=== PATIENT | female | born 1935 | race Caucasian/White ===

== ENCOUNTER 2017-05-29 15:04 | Inpatient (IN) | payer MEDICARE, BC ==
[~2017-05-29] VITALS: Ht 149.9 cm; Wt 50.3 kg
--- NOTE | 2017-05-29 15:28 | NUR ---
pt at bedside. per pt , pt has alzheimer and low blood pressure. pt is on blood pressure meds to control the bp and sometimes the pt become hypotensive and becomes altered more than usual but usually it resolves in 15 minutes. ganesh the pt was adult day care and pt was not there. but the was her usual self in the morning when the pt went to daycare.
[2017-05-29 15:37] LABS: BASOPHILS # (AUTO) 0.1 K/uL (0.0-8.0); BASOPHILS % (AUTO) 0.7 % (0.0-2.0); EOSINOPHILS # (AUTO) 0.1 K/uL (0.0-0.7); EOSINOPHILS % (AUTO) 0.9 % (0.0-7.0); HEMATOCRIT 38.4 % (31.2-41.9); HEMOGLOBIN 12.9 g/dL (10.9-14.3); LYMPHOCYTES # (AUTO) 1.4 K/uL (20.0-40.0); LYMPHOCYTES % (AUTO) 18.9 % (20.5-51.5); MEAN CORPUSCULAR HGB CONC 34 g/dL (32.3-35.6); MEAN CORPUSCULAR VOLUME 86.4 fL (75.5-95.3); NEUTROPHILS % (AUTO) 66.5 % (38.5-71.5); PLATELET COUNT (AUTO) 286 K/uL (179-408); RED BLOOD CELL COUNT(AUTO) 4.45 MIL/uL (3.63-4.92); WHITE BLOOD COUNT (AUTO) 7.5 K/uL (3.8-11.8)
[2017-05-29 15:50] LABS: CARBON DIOXIDE 27 mmol/L (21-32); CHLORIDE 98 mmol/L (98-107); CREATININE 0.7 mg/dL (0.6-1.3); GLUCOSE 88 mg/dL (74-106); POTASSIUM 4.1 mmol/L (3.5-5.1); UREA NITROGEN, BLOOD 18 mg/dL (7-18)
[2017-05-29 15:55] LABS: ALANINE AMINOTRANSFERASE 23 U/L (14-59); ALKALINE PHOSPHATASE 63 U/L (50-136); ASPARTATE AMINOTRANSFERASE 22 U/L (15-37); BILIRUBIN,DIRECT 0.1 mg/dL (0.0-0.2); BILIRUBIN,TOTAL 0.3 mg/dL (0.2-1.0); TOTAL PROTEIN, SERUM 7.9 g/dL (6.4-8.2)
[2017-05-29] MEDS ORDERED: CITA20TA19 PO (16:38)
[2017-05-29] MEDS ORDERED: MIDO10TA PO (16:38)
[2017-05-29] MEDS ORDERED: LEVO75TA7 PO (16:38)
[2017-05-29] MEDS ORDERED: MEMA10TA PO (16:38)
[2017-05-29] MEDS ORDERED: EXELON PO (16:38)
[2017-05-29] MEDS ORDERED: ACET-2154 PO (16:38)
[2017-05-29 16:40] LABS: *BILIRUBIN,URIN NEGATIVE (NEGATIVE); *BLOOD, URINE NEGATIVE (NEGATIVE); *CLARITY,URINE CLEAR (CLEAR); *COLOR,URINE YELLOW (YELLOW); *KETONES,URINE NEGATIVE (NEGATIVE); *PROTEIN,URINE 1+ (NEGATIVE); *UROBILINOGEN,URINE 0.2 E.U./dl (NORMAL); LEUKOCYTE ESTERASE ,URINE TRACE (NEGATIVE); NITRITE, URINE NEGATIVE (NEGATIVE); UGLUCOSE NEGATIVE (NEGATIVE)
[2017-05-29 16:50] LABS: BACTERIA,URINE NONE SEEN /HPF (NONE SEEN); SQUAMOUS EPITHELIAL CELL,UR MODERATE /HPF (NONE SEEN)
[2017-05-29] MEDS ORDERED: CEFTRIAXONE 1 G in IV DEXTROSE 5% 50 ML IV ONE (17:00)
[2017-05-29] MEDS ORDERED: CEFTRIAXONE 1 G VIAL ONE (17:03)
[2017-05-29] MEDS ORDERED: MAGNESIUM HYDROXIDE 30 ML LIQUID UDC PO PRN (18:15)
[2017-05-29] MEDS ORDERED: ONDANSETRON 4 MG/2 ML VIAL IV PRN (18:15)
[2017-05-29] MEDS ORDERED: HYDROCODONE/APAP 5-325MG TABLET PO PRN (18:15)
[2017-05-29] MEDS ORDERED: ACETAMINOPHEN 325 MG TABLET PO SCH (18:15)
[2017-05-29] MEDS ORDERED: Z GUARD REMEDY PASTE 57 GM TUBE TOP PRN (18:15)
[2017-05-29] MEDS ORDERED: ACETAMINOPHEN 325 MG TABLET PO PRN (18:15)
[2017-05-29] MEDS ORDERED: IV NS 1000 ML 1,000 ML IV ONE (18:15)
--- NOTE | 2017-05-29 18:30 | NUR ---
Pt is in no acute distress. Pt's skin dry and intact. iv on right ac #18. Tele pacing at 70's. Call light is within reach. Bed alarm on for fall precaution. Call light is within reach.
[2017-05-29 18:44] VITALS: BP 136/72
--- NOTE | 2017-05-29 19:30 | NUR ---
PT IN ROOM ALERT AWAKE IN NO ACUTE DISTRESS WITH PERIODS OF CONFUSION NOTED. VITAL SIGNS REMAIN WNL. SPOUSE ALKA AT BEDSIDE ASSISTING WITH ASSESSMENT PROCESS. NO NEW ORDERS AT THIS TIME. MD ORDERED PT TO START ON IV HYDRATION. BED ALARM ON WITH 3 SIDE RAILS RAISED. WILL CONTINUE TO MONITOR. OFFERED SNACKS AND ENCOURAGED FLUIDS AT THIS TIME.
[2017-05-29 20:34] VITALS: BP 124/79
[2017-05-29] MEDS: ZOLPIDEM 5 MG TABLET PO PRN (21:35)
[2017-05-30] VITALS: BP 130/73
[2017-05-30 04:00] VITALS: BP 127/76
--- NOTE | 2017-05-30 05:30 | NUR ---
PT IN ROOM ABLE TO SLEEP UP TO 6 HRS WITHOUT DIFFICULTY. NO S/S OF RESP DISTRESS. MAINTAINING IV HYDRATION WITH SALINE @75ML/HR. PACING PRESENT WITH 71 BPM. PT REPOSITIONED WITH BED ALARM ON. WILL CONTINUE TO MONITOR. PERIODS OF ALTERED MENTAL STATUS STILL PRESENT.
[2017-05-30] MEDS: LEVOTHYROXINE SODIUM 75 MCG TABLET PO SCH (06:46)
[2017-05-30 06:53] LABS: CARBON DIOXIDE 27 mmol/L (21-32); CHLORIDE 101 mmol/L (98-107); CREATININE 0.6 mg/dL (0.6-1.3); GLUCOSE 82 mg/dL (74-106); MAGNESIUM 1.9 mg/dL (1.8-2.4); PHOSPHOROUS 3.3 mg/dL (2.5-4.9); POTASSIUM 3.9 mmol/L (3.5-5.1); UREA NITROGEN, BLOOD 12 mg/dL (7-18)
[2017-05-30 06:55] LABS: BASOPHILS % (AUTO) 0.7 % (0.0-2.0); EOSINOPHILS # (AUTO) 0.1 K/uL (0.0-0.7); EOSINOPHILS % (AUTO) 1.8 % (0.0-7.0); HEMATOCRIT 34.9 % (31.2-41.9); HEMOGLOBIN 11.7 g/dL (10.9-14.3); LYMPHOCYTES # (AUTO) 1.6 K/uL (20.0-40.0); LYMPHOCYTES % (AUTO) 28.6 % (20.5-51.5); MEAN CORPUSCULAR HEMOGLOBIN 28.9 uug (24.7-32.8); MEAN CORPUSCULAR HGB CONC 33 g/dL (32.3-35.6); MEAN CORPUSCULAR VOLUME 86.7 fL (75.5-95.3); MONOCYTES # (AUTO) 0.8 K/uL (2.0-10.0); MONOCYTES % (AUTO) 14.1 % (0.0-11.0); NEUTROPHILS % (AUTO) 54.8 % (38.5-71.5); PLATELET COUNT (AUTO) 260 K/uL (179-408); RED BLOOD CELL COUNT(AUTO) 4.03 MIL/uL (3.63-4.92)
[2017-05-30 07:10] LABS: WHITE BLOOD COUNT (AUTO) 5.5 K/uL (3.8-11.8)
--- NOTE | 2017-05-30 08:00 | NUR ---
AWAKE CONFUSED ,FORGETFUL BUT FOLLOW SOME SIMPLE DIRECTION ON ASPIRATION AND FALL PRECAUTION BED ALARM ON AND CALL LIGHT IN REACH IV CONVERT TO HL ORDER
[2017-05-30] MEDS: RIVASTIGMINE TARTRATE 3 MG CAPSULE PO SCH ×2 (08:10→17:08)
[2017-05-30] MEDS: MEMANTINE HCL 10 MG TABLET PO SCH ×2 (08:10→17:08)
[2017-05-30] MEDS ORDERED: Medication Not On Formulary EA (Midodrine Hcl 10 MG) PO SCH (09:00)
[2017-05-30] MEDS: MIDODRINE HCL 5 MG TABLET PO SCH ×3 (09:00→17:08)
[2017-05-30] MEDS ORDERED: EXELON PO SCH (09:00)
--- NOTE | 2017-05-30 11:00 | NUR ---
DR GONZALEZ SEEN PATIENT NO NEW ORDER OOB UP AMB WITH ASSIST [facility] AT BEDSIDE
[2017-05-30 11:44] VITALS: BP 109/64
--- NOTE | 2017-05-30 14:00 | NUR ---
ASSIST BACK TO BED RESTING WELL PAIN UNDER CONTROL CLOSED OBSERVATION
[2017-05-30 15:06] VITALS: BP 104/46
[2017-05-30] MEDS ORDERED: CEFTRIAXONE 1 G in IV DEXTROSE 5% 50 ML IV SCH (17:00)
--- NOTE | 2017-05-30 17:30 | NUR ---
STABLE HEMODYNAMIC STATUS NO ACUTE DISTRESS ,PAIN UNDER CONTROL SAFETY MEASURE PROVIDED CALL LIGHT IN REACH AND BED ALARM ON
[2017-05-30 20:00] VITALS: BP 108/48
--- NOTE | 2017-05-30 20:00 | NUR ---
RECEIVED PATIENT AWAKE IN BED WITH AT BEDSIDE. PATIENT IS ALERT TO SELF, CONFUSED BUT PLEASANT WHEN APPROACHED. DENIES PAIN OR DISCOMFORT. NO RESP. DISTRESS NOTED. VS WNL. HEPLOCK INTACT AND PATENT. BED ALARM ON. CALL LIGHT IN REACH. ALL NEEDS ATTENDED. WILL CONTINUE TO MONITOR.
--- NOTE | 2017-05-30 22:00 | NUR ---
PATIENT AWAKE IN BED. APPEARS RESTLESS. PATIENT GIVEN AMBIEN 5MG PO PRN FOR SLEEP. BED ALARM ON. ALL NEEDS ATTENDED. WILL CONTINUE TO MONITOR.
[2017-05-30] MEDS: ZOLPIDEM 5 MG TABLET PO PRN (22:02)
--- NOTE | 2017-05-30 23:07 | NUR ---
PATIENT ASLEEP IN BED. NO RESP. DISTRESS NOTED. BED ALARM ON. ALL NEEDS ATTENDED.
[2017-05-31] MEDS: LEVOTHYROXINE SODIUM 75 MCG TABLET PO SCH (06:26)
[2017-05-31 06:29] VITALS: BP 123/74
--- NOTE | 2017-05-31 06:34 | NUR ---
PATIENT AWAKE IN BED. SLEPT WELL. BED ALARM ON. CALL LIGHT IN REACH. ALL NEEDS ATTENDED.
--- NOTE | 2017-05-31 07:51 | NUR ---
RECEIVED PATIENT AWAKE IN BED . PATIENT IS ALERT TO SELF, CONFUSED BUT PLEASANT WHEN APPROACHED. DENIES PAIN OR DISCOMFORT. NO RESP. DISTRESS NOTED. VS WNL. HEPLOCK INTACT AND PATENT. BED ALARM ON. CALL LIGHT IN REACH. ALL NEEDS ATTENDED. WILL CONTINUE TO MONITOR.
[2017-05-31] MEDS: MIDODRINE HCL 5 MG TABLET PO SCH (08:04)
[2017-05-31] MEDS: RIVASTIGMINE TARTRATE 3 MG CAPSULE PO SCH (08:04)
[2017-05-31] MEDS: MEMANTINE HCL 10 MG TABLET PO SCH (08:05)
[2017-05-31 11:07] VITALS: BP 111/60
[2017-05-31] MEDS ORDERED: CEPH-570 PO (11:09)
--- NOTE | 2017-05-31 12:03 | NUR ---
D/C ORDERS RECEIVED NOTED AND CARRIED OUT.D/C HEPLOCK PER MD ORDERS,D/C INSTRUCTION GIVEN TO THE PT AND HER ,PT LEFT THE FACILITY PRIVATE CAR IN STABLE CONDITION.
== END 2017-05-31 12:00 | disposition home or self-care (01) | DRG 73 ==
LOC: ER 15:07 → TELE 18:07 → MED 05-30 16:43
PROVIDERS: ADMIT Internal Medicine; ATTEND Internal Medicine
DX: G90.8 Other disorders of autonomic nervous system (principal); G92 Toxic encephalopathy; E86.1 Hypovolemia; E87.1 Hypo-osmolality and hyponatremia; G30.9 Alzheimer's disease, unspecified; F02.80 Dementia in other diseases classified elsewhere, unspecified severity, without behavioral disturbance, psychotic disturbance, mood disturbance, and anxiety; N39.0 Urinary tract infection, site not specified; E03.9 Hypothyroidism, unspecified; F41.9 Anxiety disorder, unspecified; F32.9 Major depressive disorder, single episode, unspecified
CPT/HCPCS: 36415; 70030-TC; 70450; 71045; 83605; 83735; 84100; 85025; 85730; 87040; 87086; 93005; A4663; C1758; J0696; J3490; J7030; J7050; J7060

== ENCOUNTER 2018-06-21 18:05 | Inpatient (IN) | payer MEDICARE, BC ==
[~2018-06-21] VITALS: Ht 182.9 cm; Wt 59.4 kg
[~2018-06-21 18:05] MED LIST: ACET-2154 PO; CEPH-570 PO; CITA20TA19 PO; EXELON PO; LEVO75TA7 PO; MEMA10TA PO; MIDO10TA PO
[2018-06-21 21:38] VITALS: BP 106/60
[2018-06-21] MEDS ORDERED: ONDA4TAB5 PO (22:08)
[2018-06-21] MEDS ORDERED: ZOLP5TAB2 PO (22:08)
[2018-06-21] MEDS ORDERED: SORB PO (22:08)
[2018-06-21] MEDS ORDERED: BISA10SU61 RC (22:08)
[2018-06-21] MEDS ORDERED: LACT10SO7 PO (22:08)
[2018-06-21] MEDS ORDERED: LACT-246 PO (22:08)
[2018-06-21] MEDS ORDERED: HYDR-3326 PO (22:08)
[2018-06-21] MEDS ORDERED: ACET-2154 PO (22:08)
--- NOTE | 2018-06-21 23:14 | NUR ---
received an 82 yr old female admitted from [facility] with admitting diagnosis of metabolic encepalopathy. patient awake alert and oriented x1. confused and disoriented. Cooperative and was able to follow simple commands. VSS. No skin breakdown. Incontinent of bowel and bladder. No BM this shift. On fall precautions. Call serra within reach. Siderails up for safety. Hx of hypothyroidism, Alzheimers, right knee replacement and has a left anterior chest wall pacemaker. MRSA swab done. HOSE TENDER Jose Fraser aware of patient's admission and meds to be reconcile. Will monitor patient.
[2018-06-22 05:40] VITALS: BP 110/73
--- NOTE | 2018-06-22 06:43 | NUR ---
slept well most of the shift. fall precautions maintained. needs attended. VSS. incontinent of urine. kept clean and dry. NO BM noted. no complaints presented during shift.
[2018-06-22 07:40] VITALS: BP 139/69
--- NOTE | 2018-06-22 07:45 | NUR ---
Patient in bed, awake, responsive to name, confused, not in any form of distress. No noted signs of pain or discomfort. Call light placed within reach. Fall precaution observed.
[2018-06-22] MEDS ORDERED: RIVA3CAP5 PO (09:18)
[2018-06-22] MEDS ORDERED: SORB30SO2 PO (09:19)
--- NOTE | 2018-06-22 09:30 | NUR ---
Patient up ambulating with walker with physical therapist, no complaints at this time.
[2018-06-22] MEDS ORDERED: BISACODYL 10 MG SUPP.RECT RC PRN (09:45)
[2018-06-22] MEDS ORDERED: ZOLPIDEM 5 MG TABLET PO PRN (09:45)
[2018-06-22] MEDS ORDERED: ACETAMINOPHEN 325 MG TABLET PO PRN (09:45)
[2018-06-22] MEDS ORDERED: HYDROCODONE/APAP 5-325MG TABLET PO PRN (09:45)
--- NOTE | 2018-06-22 10:00 | NUR ---
Patient seen and examined by Dr. Savage with at bedside. No new order at this time.
[2018-06-22] MEDS ORDERED: Medication Not On Formulary EA (Lactose-Reduced Food (Ensure Enlive) 237 ML) PO SCH (13:00)
[2018-06-22] MEDS ORDERED: Medication Not On Formulary EA (Midodrine Hcl 10 MG) PO SCH (13:00)
[2018-06-22] MEDS: ENSURE WITH FIBER 237 ML LIQUID (CHOCOLATE) PO SCH ×2 (13:12→17:55)
[2018-06-22] MEDS: MIDODRINE HCL 5 MG TABLET PO SCH ×2 (13:12→18:08)
[2018-06-22 16:12] VITALS: BP 121/62
[2018-06-22] MEDS: MEMANTINE HCL 10 MG TABLET PO SCH (17:54)
[2018-06-22] MEDS: RIVASTIGMINE TARTRATE 3 MG CAPSULE PO SCH (17:55)
[2018-06-22 19:43] VITALS: BP 99/61
[2018-06-22] MEDS: CEphaleXIN 500 MG CAPSULE PO SCH (20:22)
--- NOTE | 2018-06-22 20:41 | NUR ---
awake alert and oriented x1-2 tolerated po meds well with apple sauce. VSS. kept comfortable. incontinent of urine x2. kept clean and dry. Needs attended. fall precautions maintained. call serra at bedside. bed alarm on.
[2018-06-23 04:20] VITALS: BP 126/73
--- NOTE | 2018-06-23 04:42 | NUR ---
slept well most of the shift. VSS. No acute distress noted. needs attended. kept comfortable. incontinent of urine. kept clean and dry. safety precautions maintained.
[2018-06-23] MEDS: LEVOTHYROXINE SODIUM 75 MCG TABLET PO SCH (06:30)
[2018-06-23 08:30] VITALS: BP 94/59
[2018-06-23] MEDS: MIDODRINE HCL 5 MG TABLET PO SCH ×3 (08:33→16:18)
[2018-06-23] MEDS: CITALOPRAM 20 MG TABLET PO SCH (08:33)
[2018-06-23] MEDS: RIVASTIGMINE TARTRATE 3 MG CAPSULE PO SCH ×2 (08:34→16:17)
[2018-06-23] MEDS: MEMANTINE HCL 10 MG TABLET PO SCH ×2 (08:34→16:17)
[2018-06-23] MEDS: CEphaleXIN 500 MG CAPSULE PO SCH ×2 (08:34→20:36)
[2018-06-23] MEDS: ENSURE WITH FIBER 237 ML LIQUID (CHOCOLATE) PO SCH ×3 (08:35→16:17)
[2018-06-23] MEDS: SORBITOL 70% SOLUTION 30 ML UDC PO SCH (08:35)
--- NOTE | 2018-06-23 10:24 | NUR ---
Received pt. on bed, comfortable in no distress. A/Ox1 confused but verbally responsive. Denies CP or SOB. All due medications given and tolerated well. On PO abx for proctitis, no ASE noted. Skin care rendered, no new skin condition noted. came to visit pt. this AM. All pt. needs attended and met promptly. Safety measures in place. Call light and all frequently used items within pt. reach.
[2018-06-23] MEDS: ONDANSETRON HCL 4 MG TABLET PO SCH ×2 (13:46→14:05)
[2018-06-23 16:12] VITALS: BP 106/62
--- NOTE | 2018-06-23 18:59 | NUR ---
End of shift note: No sign of acute distress or SOB was noted. Kept pt clean and dry throughout this shift. Safety measures maintained. All needs attended and met promptly. Bed in low position, brake on, side rails up x2 as an enabler. Call light and all frequently used items within pt. reach. Will endorse to next shift accordingly
[2018-06-23 20:18] VITALS: BP 103/46
--- NOTE | 2018-06-23 20:53 | NUR ---
Received patient in bed sleeping. A/Ox1 confused but responsive to verbal stimuli. No C/O pain or SOB. On PO antibiotics for proctitis, no ASE noted. Call light and frequently used items within reach. Side rails up bilaterally. Will continue to monitor.
[2018-06-24 05:22] VITALS: BP 109/51
[2018-06-24] MEDS: LEVOTHYROXINE SODIUM 75 MCG TABLET PO SCH (06:01)
--- NOTE | 2018-06-24 06:42 | NUR ---
Patient slept soundly throughout the night. All due medications given-tolerated well. No vomiting on shift. Patient on Keflex for Proctitis. Patient assisted with bathroom needs x 1. Side rails up bilaterally for safety. Call light and frequently used items within reach. Will endorse to oncoming shift accordingly.
[2018-06-24] MEDS: MEMANTINE HCL 10 MG TABLET PO SCH ×2 (08:12→17:05)
[2018-06-24] MEDS: RIVASTIGMINE TARTRATE 3 MG CAPSULE PO SCH ×2 (08:12→17:05)
[2018-06-24] MEDS: CITALOPRAM 20 MG TABLET PO SCH (08:12)
[2018-06-24] MEDS: CEphaleXIN 500 MG CAPSULE PO SCH ×2 (08:13→20:02)
[2018-06-24] MEDS: MIDODRINE HCL 5 MG TABLET PO SCH ×3 (08:13→17:05)
[2018-06-24] MEDS: SORBITOL 70% SOLUTION 30 ML UDC PO SCH (08:13)
[2018-06-24] MEDS: ENSURE WITH FIBER 237 ML LIQUID (CHOCOLATE) PO SCH ×3 (08:13→17:05)
[2018-06-24 08:30] VITALS: BP 108/60
--- NOTE | 2018-06-24 09:29 | NUR ---
Received pt. on bed, comfortable in no distress. A/Ox1 confused but verbally responsive. Denies CP or SOB. All due medications given and tolerated well. On PO abx for proctitis, no ASE noted. Pt. showered this AM. All pt. needs attended and met promptly. Safety measures in place. Call light and all frequently used items within pt. reach.
--- NOTE | 2018-06-24 10:13 | NUR ---
INDIVIDUALIZE OVERALL PLAN OF CARE
--- NOTE | 2018-06-24 16:06 | NUR ---
Social work: AD: flare worker reached out to [facility] Address: [address] [place] [address], [place] [address] and requested copy of Advance Directive be faxed to [facility], medical records could not find paperwork, medical records took sw contact number and fax number and will return call. Pts stated pt does not want any feeding tubes.
[2018-06-24 16:30] VITALS: BP 103/51
--- NOTE | 2018-06-24 18:10 | NUR ---
End of shift note: No significant change during this shift. No distress or SOB was noted. Requires total assist during meal time. Kept pt clean and dry throughout this shift. Safety measures maintained. All needs attended and met promptly. Bed alarm on. Bed in low position, brake on, side rails up x2 as an enabler. Call light and all frequently used items within pt. reach. Will endorse to next shift accordingly
--- NOTE | 2018-06-24 19:25 | NUR ---
Received patient watching TV. Alert and oriented x 1 and confused. No C/O pain or SOB. On PO antibiotics for proctitis, no ASE noted. Call light and frequently used items within reach. Side rails up bilaterally. Will continue to monitor.
[2018-06-24 19:29] VITALS: BP 103/54
[2018-06-25 05:21] VITALS: BP 109/80
[2018-06-25] MEDS: LEVOTHYROXINE SODIUM 75 MCG TABLET PO SCH (06:05)
--- NOTE | 2018-06-25 06:41 | NUR ---
Patient slept soundly throughout the night. All due medications given-tolerated well. Patient on Keflex for Proctitis. Patient assisted with bathroom needs x 1. Side rails up bilaterally for safety. Call light and frequently used items within reach. Will endorse to oncoming shift accordingly.
[2018-06-25 07:41] VITALS: BP 133/69
[2018-06-25] MEDS: CITALOPRAM 20 MG TABLET PO SCH (08:27)
[2018-06-25] MEDS: MIDODRINE HCL 5 MG TABLET PO SCH ×3 (08:28→16:05)
[2018-06-25] MEDS: MEMANTINE HCL 10 MG TABLET PO SCH ×2 (08:28→16:21)
[2018-06-25] MEDS: RIVASTIGMINE TARTRATE 3 MG CAPSULE PO SCH ×2 (08:29→16:21)
[2018-06-25] MEDS: SORBITOL 70% SOLUTION 30 ML UDC PO SCH (08:29)
[2018-06-25] MEDS: CEphaleXIN 500 MG CAPSULE PO SCH (08:29)
[2018-06-25] MEDS: ENSURE WITH FIBER 237 ML LIQUID (CHOCOLATE) PO SCH ×3 (08:29→16:21)
--- NOTE | 2018-06-25 09:19 | NUR ---
Received pt. on bed, comfortable in no distress. A/Ox1 confused but verbally responsive. Denies CP or SOB. All due medications given and tolerated well. Last dose of keflex given today. Noted with poor PO intake, encouraged to drink Ensure. All pt. needs attended and met promptly. Safety measures in place. Call light and all frequently used items within pt. reach.
[2018-06-25 16:02] VITALS: BP 115/62
--- NOTE | 2018-06-25 18:44 | NUR ---
End of shift note: No significant change during this shift. No distress or SOB was noted. Kept pt clean and dry throughout this shift. Safety measures maintained. All needs attended and met promptly. Bed alarm on. Bed in low position, brake on, side rails up x2 as an enabler. Call light and all frequently used items within pt. reach. Will endorse to next shift accordingly
[2018-06-25 19:22] VITALS: BP 104/54
--- NOTE | 2018-06-25 20:08 | NUR ---
awake and alert at beginning of shift. VSS. needs attended. incontinent of bowel and bladder. kept clean and dry. No BM noted this shift. kept comfortable. Repositioned for comfort. Turn from sides to sides. Will monitor patient. Denies any pain nor any discomfort.
[2018-06-26 05:42] VITALS: BP 121/57
[2018-06-26] MEDS: LEVOTHYROXINE SODIUM 75 MCG TABLET PO SCH (06:08)
[2018-06-26] MEDS: CITALOPRAM 20 MG TABLET PO SCH (08:08)
[2018-06-26] MEDS: MIDODRINE HCL 5 MG TABLET PO SCH ×3 (08:08→16:48)
[2018-06-26] MEDS: MEMANTINE HCL 10 MG TABLET PO SCH ×2 (08:08→16:42)
[2018-06-26] MEDS: ENSURE WITH FIBER 237 ML LIQUID (CHOCOLATE) PO SCH ×3 (08:14→16:49)
[2018-06-26] MEDS: RIVASTIGMINE TARTRATE 3 MG CAPSULE PO SCH ×2 (08:24→16:48)
[2018-06-26] MEDS: SORBITOL 70% SOLUTION 30 ML UDC PO SCH (08:24)
[2018-06-26 09:00] VITALS: BP 119/56
--- NOTE | 2018-06-26 15:55 | NUR ---
Received patient awake, alert to self in stable condition. not in distress. Continue therapy for ambulation, ADL and transfer ability. tolerated well. no complaint of pain/discomfort noted. will continue monitor
[2018-06-26 18:52] VITALS: BP 134/69
[2018-06-26 19:40] VITALS: BP 130/61
--- NOTE | 2018-06-26 19:54 | NUR ---
awake and alert. VSS no acute distress noted.denies any pain nor any discomfort. VSS repoitioned for comfort. needs attended. kept comfortable. PM care done. incontinent of bowel and bladder. kept clean and dry. fall precautions maintained. siderails up for safety. call serra within reach. bed alarm on.
[2018-06-27 04:30] VITALS: BP 118/67
[2018-06-27] MEDS: LEVOTHYROXINE SODIUM 75 MCG TABLET PO SCH (06:25)
--- NOTE | 2018-06-27 06:42 | NUR ---
slept well most of the shift. VSS. kept comfortable. incontinent of bowel and bladder. BM this shift. no acute distress noted.will monitor patient.
--- NOTE | 2018-06-27 07:20 | NUR ---
Patient awake, alert oriented to self, verbally responsive, not in any form of distress. No complain of pain or any discomfort. Call light and frequently used items placed within reach. Safety measures in place.
[2018-06-27 07:58] LABS: BASOPHILS % (AUTO) 0.4 % (0.0-2.0); EOSINOPHILS # (AUTO) 0.1 K/uL (0.0-0.7); EOSINOPHILS % (AUTO) 0.7 % (0.0-7.0); HEMOGLOBIN 11.4 g/dL (10.9-14.3); LYMPHOCYTES # (AUTO) 1.3 K/uL (20.0-40.0); LYMPHOCYTES % (AUTO) 16.4 % (20.5-51.5); MEAN CORPUSCULAR HGB CONC 33 g/dL (32.3-35.6); MEAN CORPUSCULAR VOLUME 84.1 fL (75.5-95.3); MONOCYTES # (AUTO) 0.9 K/uL (2.0-10.0); MONOCYTES % (AUTO) 11.8 % (0.0-11.0); NEUTROPHILS # (AUTO) 5.5 K/uL (1.8-8.9); NEUTROPHILS % (AUTO) 70.7 % (38.5-71.5); PLATELET COUNT (AUTO) 517 K/uL (179-408); RED BLOOD CELL COUNT(AUTO) 4.05 MIL/uL (3.63-4.92); WHITE BLOOD COUNT (AUTO) 7.7 K/uL (3.8-11.8)
[2018-06-27 08:00] VITALS: BP 108/55
[2018-06-27 08:34] LABS: ALANINE AMINOTRANSFERASE 21 U/L (14-59); ALKALINE PHOSPHATASE 81 U/L (50-136); ASPARTATE AMINOTRANSFERASE 14 U/L (15-37); BILIRUBIN,TOTAL 0.2 mg/dL (0.2-1.0); CARBON DIOXIDE 30 mmol/L (21-32); CHLORIDE 101 mmol/L (98-107); CHOLESTEROL 201 mg/dL (<200); CREATININE 0.6 mg/dL (0.6-1.3); GLUCOSE 100 mg/dL (74-106); HDL CHOLESTEROL 45 mg/dL (40-60); MAGNESIUM 2.1 mg/dL (1.8-2.4); PHOSPHOROUS 3.3 mg/dL (2.5-4.9); POTASSIUM 4.1 mmol/L (3.5-5.1); TOTAL PROTEIN, SERUM 6.9 g/dL (6.4-8.2); TRIGLYCERIDES 75 MG/DL (30-150); UREA NITROGEN, BLOOD 14 mg/dL (7-18)
[2018-06-27] MEDS: MEMANTINE HCL 10 MG TABLET PO SCH ×2 (09:23→17:04)
[2018-06-27] MEDS: CITALOPRAM 20 MG TABLET PO SCH (09:23)
[2018-06-27] MEDS: RIVASTIGMINE TARTRATE 3 MG CAPSULE PO SCH ×2 (09:23→17:03)
[2018-06-27] MEDS: SORBITOL 70% SOLUTION 30 ML UDC PO SCH (09:24)
[2018-06-27] MEDS: MIDODRINE HCL 5 MG TABLET PO SCH ×3 (09:24→17:00)
[2018-06-27] MEDS: ENSURE WITH FIBER 237 ML LIQUID (CHOCOLATE) PO SCH ×3 (09:25→17:17)
[2018-06-27 10:08] LABS: THYROID STIMULATING HORMONE 3.116 mIU/mL (0.358-3.740)
[2018-06-27 17:00] VITALS: BP 145/74
--- NOTE | 2018-06-27 18:45 | NUR ---
Notified Dr. Williamson regarding patient's blood pressure 145/74 and due midodrine, per MD hold dose now and change order to Midodrine 5mg PO Q12hrs hold for SBP above 120mmHg
[2018-06-27 20:09] VITALS: BP 119/69
[2018-06-27] MEDS: ATORVASTATIN 10 MG TABLET PO SCH (20:32)
--- NOTE | 2018-06-27 23:30 | NUR ---
awake upon initial rounds. aaox1-2 compliant with meds. tolerated po meds well. VSS. no acute distress noted. incontinent of bowel and bladder. kept clean and dry. seen by Dr Williamson. Will call in am. Celexa and sorbitol d/c per MD's order. Fall precautions maintained. Siderails up for safety. Call serra within reach.
[2018-06-28 06:05] VITALS: BP 126/64
--- NOTE | 2018-06-28 06:12 | NUR ---
slept well most of the shift. VSS no distress noted. Repositioned for comfort. kept comfortable. siderails up for safety.
[2018-06-28] MEDS: LEVOTHYROXINE SODIUM 75 MCG TABLET PO SCH (06:28)
[2018-06-28] MEDS: RIVASTIGMINE TARTRATE 3 MG CAPSULE PO SCH ×2 (08:09→16:55)
[2018-06-28] MEDS: MIDODRINE HCL 5 MG TABLET PO SCH ×2 (08:09→20:32)
[2018-06-28] MEDS: ENSURE WITH FIBER 237 ML LIQUID (CHOCOLATE) PO SCH ×3 (08:09→16:56)
[2018-06-28] MEDS: MEMANTINE HCL 10 MG TABLET PO SCH ×2 (08:09→16:55)
--- NOTE | 2018-06-28 12:44 | NUR ---
INTERDISCIPLINARY TEAM CONFERENCE
[2018-06-28 17:18] VITALS: BP 104/53
[2018-06-28 17:19] VITALS: BP 11/61
--- NOTE | 2018-06-28 18:33 | NUR ---
Patient continue therapy for ambulation, ADL and transfer ability. no agitation noted. not in distress. Continue aspiration precaution maintained. will continue monitor
[2018-06-28 19:27] VITALS: BP 98/48
[2018-06-28] MEDS: ATORVASTATIN 10 MG TABLET PO SCH (20:31)
--- NOTE | 2018-06-28 20:44 | NUR ---
Received pt in bed, AAO x 1 to self. No acute distress noted. Resting in bed comfortably, positioned on right lateral side. Compliant with care and medications. No facial indications of pain noted. All safety measures and fall precautions maintained. Call light and all personal belongings within reach. Will continue to monitor.
[2018-06-29 05:00] VITALS: BP 121/61
[2018-06-29] MEDS: LEVOTHYROXINE SODIUM 75 MCG TABLET PO SCH (06:18)
[2018-06-29 07:00] VITALS: BP 114/69
[2018-06-29] MEDS: MEMANTINE HCL 10 MG TABLET PO SCH ×2 (09:49→17:08)
[2018-06-29] MEDS: RIVASTIGMINE TARTRATE 3 MG CAPSULE PO SCH ×2 (09:49→17:08)
[2018-06-29] MEDS: MIDODRINE HCL 5 MG TABLET PO SCH ×2 (09:49→20:29)
[2018-06-29] MEDS: ENSURE WITH FIBER 237 ML LIQUID (CHOCOLATE) PO SCH ×3 (09:50→17:09)
[2018-06-29 16:00] VITALS: BP 142/76
[2018-06-29 19:28] VITALS: BP 119/73
--- NOTE | 2018-06-29 19:30 | NUR ---
Patient alert and oriented x 1 and confused. Listening to Tv with eyes closed during assessment. No distress or SOB. No facial indications of pain noted. Patient repositioned on left side. Call light and frequently used items within reach. Side rails up bilaterally. Will continue to monitor.
[2018-06-29] MEDS: ATORVASTATIN 10 MG TABLET PO SCH (20:29)
--- NOTE | 2018-06-29 20:45 | NUR ---
Informed Dr. Williamson of foul smelling urine when changing brief. Will continue to monitor.
[2018-06-30 05:17] VITALS: BP 112/64
[2018-06-30] MEDS: LEVOTHYROXINE SODIUM 75 MCG TABLET PO SCH (06:28)
--- NOTE | 2018-06-30 06:42 | NUR ---
Patient slept soundly throughout the night. All due medications given-tolerated well. Patient assisted with bathroom needs x 1. Side rails up bilaterally for safety. Call light and frequently used items within reach. Will endorse to oncoming shift accordingly.
[2018-06-30 09:02] VITALS: BP 105/58
[2018-06-30] MEDS: RIVASTIGMINE TARTRATE 3 MG CAPSULE PO SCH ×2 (09:28→18:17)
[2018-06-30] MEDS: MIDODRINE HCL 5 MG TABLET PO SCH ×2 (09:30→20:17)
[2018-06-30] MEDS: ENSURE WITH FIBER 237 ML LIQUID (CHOCOLATE) PO SCH ×3 (09:30→18:18)
[2018-06-30] MEDS: MEMANTINE HCL 10 MG TABLET PO SCH ×2 (09:30→18:17)
[2018-06-30 19:30] VITALS: BP 99/57
[2018-06-30] MEDS: ATORVASTATIN 10 MG TABLET PO SCH (20:11)
--- NOTE | 2018-06-30 20:23 | NUR ---
awake alert and oriented x1 . confused and disoriented. Able to follow commands. Repositioned for comfort. Turned to sides. Incontinent of urine x2 Kept clean and dry. Fall precautions maintained. Siderails up for safety. Call serra within reach. Will monitor patient. Due meds given as scheduled.
[2018-07-01 06:08] VITALS: BP 105/50
[2018-07-01] MEDS: LEVOTHYROXINE SODIUM 75 MCG TABLET PO SCH (06:20)
[2018-07-01 08:15] VITALS: BP 96/47
[2018-07-01] MEDS: MEMANTINE HCL 10 MG TABLET PO SCH ×2 (08:27→17:12)
[2018-07-01] MEDS: ENSURE WITH FIBER 237 ML LIQUID (CHOCOLATE) PO SCH ×3 (08:27→17:12)
[2018-07-01] MEDS: RIVASTIGMINE TARTRATE 3 MG CAPSULE PO SCH ×2 (08:28→17:12)
[2018-07-01] MEDS: MIDODRINE HCL 5 MG TABLET PO SCH ×2 (08:28→20:37)
--- NOTE | 2018-07-01 09:40 | NUR ---
Received pt. on bed, comfortable in no distress. A/Ox1 confused and forgetful. Responsive to verbal and tactile stimuli, follows simple commands. Denies CP or SOB. All due medications given and tolerated well. Max assist with breakfast, tolerated well with good PO intake (100%). at bedside for support. All pt. needs attended and met promptly. Safety measures in place. Call light and all frequently used items within pt. reach.
--- NOTE | 2018-07-01 12:45 | NUR ---
Pt. refused Ensure during lunch. Offered alternative drink and tolerated well.
[2018-07-01 18:01] VITALS: BP 110/67
--- NOTE | 2018-07-01 18:15 | NUR ---
End of shift note: No sign of acute distress or SOB was noted. Kept pt clean and dry throughout this shift. Pt. showered this AM. Safety measures maintained. All needs attended and met promptly. Bed in low position, brake on, side rails up x2 as an enabler. Call light and all frequently used items within pt. reach. Will endorse to next shift accordingly
[2018-07-01 19:25] VITALS: BP 110/66
[2018-07-01] MEDS: ATORVASTATIN 10 MG TABLET PO SCH (20:36)
--- NOTE | 2018-07-01 20:55 | NUR ---
received patient in bed awake alert and oriented x1 appears comfortable. fall precautions maintained. siderails up for safety. compliant with meds. repositioned for comfort. turned from sides to sides. incontinent of urine. kept clean and dry. no dsitress noted. VSS.
[2018-07-02 05:37] VITALS: BP 107/54
[2018-07-02] MEDS: LEVOTHYROXINE SODIUM 75 MCG TABLET PO SCH (06:29)
--- NOTE | 2018-07-02 06:34 | NUR ---
End of shift report: quiet night. slept well no acute distress noted. tolerated po meds well. denies any pain nor any discomfort. VSS. BM noted this shift. kept comfortable.
[2018-07-02 07:45] VITALS: BP 107/57
[2018-07-02] MEDS: RIVASTIGMINE TARTRATE 3 MG CAPSULE PO SCH ×2 (08:13→16:30)
[2018-07-02] MEDS: MEMANTINE HCL 10 MG TABLET PO SCH ×2 (08:13→16:31)
[2018-07-02] MEDS: ENSURE WITH FIBER 237 ML LIQUID (CHOCOLATE) PO SCH ×3 (08:13→16:30)
[2018-07-02] MEDS: MIDODRINE HCL 5 MG TABLET PO SCH ×2 (08:13→20:40)
--- NOTE | 2018-07-02 09:00 | NUR ---
Received patient awake in bed. Alert and oriented to self. Continue therapy for transfer and ADL ability. not in distress. no change in level of consciousness. no signs of pain/discomfort noted. Continue on aspiration precaution maintained. will continue monitor
[2018-07-02 15:39] VITALS: BP 113/59
[2018-07-02 19:17] VITALS: BP 103/52
[2018-07-02] MEDS: ATORVASTATIN 10 MG TABLET PO SCH (20:40)
--- NOTE | 2018-07-02 21:04 | NUR ---
Received pt in bed, appearing to be asleep but easily arousable to verbal stimuli and light touch. No acute distress noted. AAO x 1 to self only. Denies pain or discomfort, able to verbalize basic needs. No noted facial indications of pain at this time. Due medications given crushed with apple sauce, tolerated well. Upon skin assessment, noted with no redness on sacrum/buttocks area. However, noted with groin redness. Picture taken and placed in chart. Cleansed with soap and water, patted dry & applied zguard. All safety measures and fall precautions maintained. Call light and all personal belongings within reach. Will continue to monitor.
[2018-07-03] MEDS: LEVOTHYROXINE SODIUM 75 MCG TABLET PO SCH (06:03)
[2018-07-03 06:24] VITALS: BP 112/65
[2018-07-03] MEDS: MEMANTINE HCL 10 MG TABLET PO SCH ×2 (08:04→16:24)
[2018-07-03] MEDS: RIVASTIGMINE TARTRATE 3 MG CAPSULE PO SCH ×2 (08:05→16:24)
[2018-07-03] MEDS: LACTULOSE 20 G/30 ML LIQUID UDC PO PRN (08:05)
[2018-07-03] MEDS: MIDODRINE HCL 5 MG TABLET PO SCH ×2 (08:06→20:22)
[2018-07-03] MEDS: ENSURE WITH FIBER 237 ML LIQUID (CHOCOLATE) PO SCH ×3 (08:07→16:24)
[2018-07-03 09:21] VITALS: BP 107/57
--- NOTE | 2018-07-03 09:42 | NUR ---
Received patient awake in bed. Alert and oriented x1 in stable condition. Continue therapy for ambulation, ADL and transfer ability. Continue maximum assist in feeding. tolerated well. Consumed 75-80% of meals. Aspiration precaution maintained. will continue monitor
[2018-07-03 11:35] LABS: BASOPHILS # (AUTO) 0.1 K/uL (0.0-8.0); BASOPHILS % (AUTO) 0.8 % (0.0-2.0); EOSINOPHILS # (AUTO) 0.1 K/uL (0.0-0.7); EOSINOPHILS % (AUTO) 0.8 % (0.0-7.0); HEMATOCRIT 36.8 % (31.2-41.9); HEMOGLOBIN 12.2 g/dL (10.9-14.3); LYMPHOCYTES # (AUTO) 1.5 K/uL (20.0-40.0); LYMPHOCYTES % (AUTO) 18.4 % (20.5-51.5); MEAN CORPUSCULAR HEMOGLOBIN 27.9 uug (24.7-32.8); MEAN CORPUSCULAR HGB CONC 33 g/dL (32.3-35.6); MEAN CORPUSCULAR VOLUME 84.4 fL (75.5-95.3); MONOCYTES % (AUTO) 11.7 % (0.0-11.0); NEUTROPHILS # (AUTO) 5.6 K/uL (1.8-8.9); NEUTROPHILS % (AUTO) 68.3 % (38.5-71.5); PLATELET COUNT (AUTO) 462 K/uL (179-408); RED BLOOD CELL COUNT(AUTO) 4.36 MIL/uL (3.63-4.92); WHITE BLOOD COUNT (AUTO) 8.2 K/uL (3.8-11.8)
[2018-07-03 11:41] LABS: CARBON DIOXIDE 29 mmol/L (21-32); CHLORIDE 100 mmol/L (98-107); CREATININE 0.7 mg/dL (0.6-1.3); GLUCOSE 111 mg/dL (74-106); POTASSIUM 3.7 mmol/L (3.5-5.1); UREA NITROGEN, BLOOD 19 mg/dL (7-18)
[2018-07-03 11:45] LABS: MAGNESIUM 2.1 mg/dL (1.8-2.4); PHOSPHOROUS 3.5 mg/dL (2.5-4.9)
--- NOTE | 2018-07-03 15:34 | NUR ---
Patient seen and examined by SERGIO Meneses with order BMP, CBC, MG, PHOS and UA profile-collected via catheter. not in distress. Continue encourage fluid intake and given. will continue monitor
[2018-07-03 15:37] LABS: *BILIRUBIN,URIN NEGATIVE (NEGATIVE); *BLOOD, URINE 1+ (NEGATIVE); *COLOR,URINE YELLOW (YELLOW); *KETONES,URINE 1+ (NEGATIVE); *UROBILINOGEN,URINE 0.2 E.U./dl (NORMAL); NITRITE, URINE POSITIVE (NEGATIVE); PH,URINE 5.5 (5.0-8.0); UGLUCOSE NEGATIVE (NEGATIVE)
[2018-07-03 15:56] LABS: *CLARITY,URINE CLOUDY (CLEAR); LEUKOCYTE ESTERASE ,URINE 2+ (NEGATIVE)
[2018-07-03 15:59] LABS: BACTERIA,URINE MANY /HPF (NONE SEEN); MUCUS,URINE MANY /LPF (0-FEW); SQUAMOUS EPITHELIAL CELL,UR FEW /HPF (NONE SEEN); WBC,URINE 80-100 /HPF (0-3)
[2018-07-03 16:28] VITALS: BP 109/51
--- NOTE | 2018-07-03 18:08 | NUR ---
Patient urine result relayed to CARMINA Cook, no new order. Encourage fluid intake. will continue monitor Addendum: 07/03/18 at 1814 by SLADE REYNOLDS RN RN SERGIO Cook aware of urine result.
[2018-07-03 19:25] VITALS: BP 114/58
[2018-07-03] MEDS: ATORVASTATIN 10 MG TABLET PO SCH (20:22)
[2018-07-04 05:59] VITALS: BP 128/47
[2018-07-04] MEDS: LEVOTHYROXINE SODIUM 75 MCG TABLET PO SCH (06:30)
[2018-07-04 08:40] VITALS: BP 109/61
[2018-07-04] MEDS: ENSURE WITH FIBER 237 ML LIQUID (CHOCOLATE) PO SCH ×3 (08:41→16:37)
[2018-07-04] MEDS: RIVASTIGMINE TARTRATE 3 MG CAPSULE PO SCH ×2 (08:41→16:37)
[2018-07-04] MEDS: MEMANTINE HCL 10 MG TABLET PO SCH ×2 (08:42→16:36)
[2018-07-04] MEDS: MIDODRINE HCL 5 MG TABLET PO SCH ×2 (08:42→20:39)
--- NOTE | 2018-07-04 09:00 | NUR ---
Patient in bed awake, alert, oriented x1 confused, follows simple commands, not in any form of distress. Maximum assist with feeding, administered due medications and tolerated well. Needs attended to. Call light placed within reach. Safety measures maintained.
[2018-07-04] MEDS: LACTULOSE 20 G/30 ML LIQUID UDC PO PRN (10:03)
[2018-07-04] MEDS: CEphaleXIN 500 MG CAPSULE PO SCH ×2 (10:27→20:39)
[2018-07-04] MEDS: LACTULOSE 20 G/30 ML LIQUID UDC PO SCH ×2 (11:15→20:38)
--- NOTE | 2018-07-04 11:15 | NUR ---
Held due lactulose at this time since PRN lactulose was just administered, SERGIO Meneses made aware.
[2018-07-04] MEDS ORDERED: IV NORMAL SALINE 500 ML IV ONE (12:00)
[2018-07-04] MEDS: MIRALAX 17 GM POWD.PACK PO SCH (12:02)
--- NOTE | 2018-07-04 14:16 | NUR ---
Patient up ambulating with walker with physical therapist. Patient has no complaints at this time, not in any distress.
[2018-07-04] MEDS ORDERED: Z GUARD REMEDY PASTE 57 GM TUBE TOP PRN (15:30)
[2018-07-04 16:59] VITALS: BP 139/70
--- NOTE | 2018-07-04 19:00 | NUR ---
Sleeping during initial rounds. No s/s of respiratory distress. HL on RW G#22 intact and patent, no s/s of infiltration noted. Safety measure and fall precaution maintained. Continue care as planned.
[2018-07-04 19:43] VITALS: BP 109/62
[2018-07-04] MEDS: ATORVASTATIN 10 MG TABLET PO SCH (20:39)
[2018-07-05 05:43] VITALS: BP 118/64
--- NOTE | 2018-07-05 06:31 | NUR ---
Slept well. No complaint presented all night. Remained quiet, cooperative , confused. All needs attended and met. Complete bed bath given, tolerated well. No significant event reported all night. Continue current rehab plan of care.
[2018-07-05] MEDS: LEVOTHYROXINE SODIUM 75 MCG TABLET PO SCH (06:40)
[2018-07-05 07:50] VITALS: BP 125/64
[2018-07-05] MEDS: MEMANTINE HCL 10 MG TABLET PO SCH ×2 (08:08→17:00)
[2018-07-05] MEDS: MIDODRINE HCL 5 MG TABLET PO SCH ×2 (08:08→20:30)
[2018-07-05] MEDS: CEphaleXIN 500 MG CAPSULE PO SCH ×2 (08:08→20:29)
[2018-07-05] MEDS: MIRALAX 17 GM POWD.PACK PO SCH (08:08)
[2018-07-05] MEDS: LACTULOSE 20 G/30 ML LIQUID UDC PO SCH ×2 (08:08→20:29)
[2018-07-05] MEDS: RIVASTIGMINE TARTRATE 3 MG CAPSULE PO SCH ×2 (08:09→17:00)
[2018-07-05] MEDS: ENSURE WITH FIBER 237 ML LIQUID (CHOCOLATE) PO SCH ×3 (08:09→17:00)
--- NOTE | 2018-07-05 09:28 | NUR ---
Received patient awake in bed in stable condition. Seen and examined by neurologist. no new order. tried to assist the patient to eat on her own. Patient uncooperative, without agitation noted. MD aware. will continue monitor
--- NOTE | 2018-07-05 12:40 | NUR ---
WOUND CARE CONSULT: PT PRESENTS WITH INCONTINENCE AND INTACT SKIN. RECOMMENDATIONS MADE FOR SKIN PROTECTION. DISCUSSED WITH NURSING STAFF. WILL SEE PRN. DUVAL IN AGREEMENT WITH PLAN OF CARE.
--- NOTE | 2018-07-05 14:27 | NUR ---
INTERDISCIPLINARY TEAM CONFERENCE
[2018-07-05 16:32] VITALS: BP 123/70
--- NOTE | 2018-07-05 19:00 | NUR ---
Quietly lying in bed. Not in distress. HL RW intact and patent. No s/s of pain/discomforts. Safety measures and fall precaution maintained. Continue care as planned.
[2018-07-05 19:42] VITALS: BP 119/65
[2018-07-05] MEDS: SENNOSIDES 1 TABLET PO SCH (20:29)
[2018-07-05] MEDS: ATORVASTATIN 10 MG TABLET PO SCH (20:29)
[2018-07-06 06:29] VITALS: BP 118/70
[2018-07-06] MEDS: LEVOTHYROXINE SODIUM 75 MCG TABLET PO SCH (06:51)
--- NOTE | 2018-07-06 07:12 | NUR ---
Patient very needy, attention seeker, always screaming for help but when you attend her need she does not want to be left alone and starts screaming again. All needs attended and met. Complete bed bath given, tolerated well. No significant event reported all night. Continue rehab plan of care. Addendum: 07/06/18 at 0715 by MONICA TAYLOR RN Wrong patient.
--- NOTE | 2018-07-06 07:16 | NUR ---
Slept well. All needs attended and met. No complaint presented. No significant event reported all night. Continue rehab plan of care.
[2018-07-06] MEDS: CEphaleXIN 500 MG CAPSULE PO SCH ×2 (09:36→20:59)
[2018-07-06] MEDS: MIRALAX 17 GM POWD.PACK PO SCH (09:36)
[2018-07-06] MEDS: MIDODRINE HCL 5 MG TABLET PO SCH ×2 (09:37→20:59)
[2018-07-06] MEDS: RIVASTIGMINE TARTRATE 3 MG CAPSULE PO SCH ×2 (09:37→17:59)
[2018-07-06] MEDS: MEMANTINE HCL 10 MG TABLET PO SCH ×2 (09:37→17:59)
[2018-07-06] MEDS: LACTULOSE 20 G/30 ML LIQUID UDC PO SCH ×2 (09:37→20:58)
[2018-07-06] MEDS: ENSURE WITH FIBER 237 ML LIQUID (CHOCOLATE) PO SCH ×3 (09:38→17:59)
[2018-07-06 15:26] LABS: BASOPHILS # (AUTO) 0.1 K/uL (0.0-8.0); EOSINOPHILS # (AUTO) 0.2 K/uL (0.0-0.7); EOSINOPHILS % (AUTO) 1.5 % (0.0-7.0); HEMATOCRIT 36.6 % (31.2-41.9); HEMOGLOBIN 12.1 g/dL (10.9-14.3); LYMPHOCYTES # (AUTO) 2.1 K/uL (20.0-40.0); LYMPHOCYTES % (AUTO) 19.9 % (20.5-51.5); MEAN CORPUSCULAR HEMOGLOBIN 27.6 uug (24.7-32.8); MEAN CORPUSCULAR HGB CONC 33 g/dL (32.3-35.6); MEAN CORPUSCULAR VOLUME 83.7 fL (75.5-95.3); MONOCYTES # (AUTO) 1.3 K/uL (2.0-10.0); MONOCYTES % (AUTO) 12.4 % (0.0-11.0); NEUTROPHILS # (AUTO) 6.8 K/uL (1.8-8.9); NEUTROPHILS % (AUTO) 65.2 % (38.5-71.5); PLATELET COUNT (AUTO) 418 K/uL (179-408); RED BLOOD CELL COUNT(AUTO) 4.38 MIL/uL (3.63-4.92); WHITE BLOOD COUNT (AUTO) 10.4 K/uL (3.8-11.8)
[2018-07-06 15:33] LABS: CARBON DIOXIDE 25 mmol/L (21-32); CHLORIDE 100 mmol/L (98-107); CREATININE 0.5 mg/dL (0.6-1.3); GLUCOSE 119 mg/dL (74-106); PHOSPHOROUS 3.3 mg/dL (2.5-4.9); POTASSIUM 3.9 mmol/L (3.5-5.1); UREA NITROGEN, BLOOD 18 mg/dL (7-18)
--- NOTE | 2018-07-06 19:00 | NUR ---
Sleeping during initial rounds. No s/s of respiratory distress, pain/discomforts. HL RW intact and patent. No s/s of infiltration. Safety measure and fall precaution maintained. Continue current plan of care.
[2018-07-06 20:30] VITALS: BP 102/63
[2018-07-06] MEDS: SENNOSIDES 1 TABLET PO SCH (20:59)
[2018-07-06] MEDS: ATORVASTATIN 10 MG TABLET PO SCH (20:59)
[2018-07-07] MEDS: LEVOTHYROXINE SODIUM 75 MCG TABLET PO SCH (06:10)
[2018-07-07 06:21] VITALS: BP 112/64
--- NOTE | 2018-07-07 06:25 | NUR ---
Slept well. No significant event reported all night. All needs attended nad met. Continue current rehab plan of care.
--- NOTE | 2018-07-07 07:31 | NUR ---
patient is sleeping in bed, no sob,resp even nonlabored,no acute distress noted
[2018-07-07] MEDS: MIRALAX 17 GM POWD.PACK PO SCH (08:44)
[2018-07-07] MEDS: CEphaleXIN 500 MG CAPSULE PO SCH (08:44)
[2018-07-07] MEDS: LACTULOSE 20 G/30 ML LIQUID UDC PO SCH (08:45)
[2018-07-07] MEDS: RIVASTIGMINE TARTRATE 3 MG CAPSULE PO SCH (08:47)
[2018-07-07 09:00] VITALS: BP 127/67
[2018-07-07] MEDS: MIDODRINE HCL 5 MG TABLET PO SCH (09:00)
[2018-07-07] MEDS: ENSURE WITH FIBER 237 ML LIQUID (CHOCOLATE) PO SCH ×2 (09:14→12:22)
[2018-07-07] MEDS: MEMANTINE HCL 10 MG TABLET PO SCH (09:17)
--- NOTE | 2018-07-07 14:50 | NUR ---
PATIENT IS DISCHARGED TO [facility], ALERT, ORIENTED X1, VERBALLY RESPONSIVE,NO SOB, RESP EVEN NONLABORED,SKIN WARM AND DRY TO TOUCH, ACCOMPANIED BY AND PICKED UP BY [facility]. BELONGINGS ARE ACCOUNTED AND SIGNED, DISCHARGE PAPERS AND INSTRUCTIONS GIVEN TO AND PATIENT. NO ACUTE DISTRESS NOTED AT THIS TIME. PERIPHERAL IV AND ID BAND REMOVED.
== END 2018-07-07 14:50 | disposition home health service (06) | DRG 71 ==
PROVIDERS: ADMIT Physical Medicine & Rehabilitation Pain Medicine; ATTEND Physical Medicine & Rehabilitation Pain Medicine
DX: G93.41 Metabolic encephalopathy (principal); E46 Unspecified protein-calorie malnutrition; N39.0 Urinary tract infection, site not specified; E03.9 Hypothyroidism, unspecified; K59.00 Constipation, unspecified; Z80.3 Family history of malignant neoplasm of breast; Z96.651 Presence of right artificial knee joint; Z95.0 Presence of cardiac pacemaker; E78.5 Hyperlipidemia, unspecified; I95.1 Orthostatic hypotension; M80.88XD Other osteoporosis with current pathological fracture, vertebra(e), subsequent encounter for fracture with routine healing; B96.89 Other specified bacterial agents as the cause of diseases classified elsewhere; K62.89 Other specified diseases of anus and rectum; M47.897 Other spondylosis, lumbosacral region; F01.50 Vascular dementia, unspecified severity, without behavioral disturbance, psychotic disturbance, mood disturbance, and anxiety; M19.90 Unspecified osteoarthritis, unspecified site; R53.1 Weakness
CPT/HCPCS: 36415; 70030-TC; 71045; 82652; 83735; 84100; 84443; 85025; 85730; 87077; 87086; 92507; 92523; 97110; 97112; 97116; 97165; 97530; 97535; A4663; C1758; J7040; Q0162